=== PATIENT | male | born 1965 | race Caucasian/White ===

== ENCOUNTER 2023-03-22 17:14 | Emergency (ER) | payer OTHER, SELFPAY ==
[2023-03-22 18:39] VITALS: BP 117/65; PULSE 71; RESP 18; TEMP 36.8; O2SAT 100; BMI 25.0
--- NOTE | 2023-03-22 19:56 | ED.EXTPRO ---
HPI - Extremity Problem General Chief complaint: Extremity Injury, Upper Stated complaint: right pinky finger inj Time Seen by Provider: 03/22/23 19:34 Source: patient and family Mode of arrival: ambulatory Limitations: no limitations History of Present Illness HPI Narrative: 57 yo male ambidextrous here with complaints of right hand 5th finger pain/swelling. Was on an approximately 3 foot ladder when he slipped catching his finger on a railing causing it to bend backwards. Now pain and swelling. No numbness, tingling, weakness. MD Complaint: extremity pain and extremity swelling Related Data Allergies Allergy/AdvReac Type Severity Reaction Status Date / Time No Known Allergies Allergy Verified 03/22/23 18:38 [No Known Allergies*] Review of Systems Review of Systems: Yes all other systems are reviewed and are negative Constitutional: Constitutional: Reports no additional constitutional complaints, Denies body ache(s), Denies chills, Denies fever(s), Denies headache(s) and Denies weakness Eyes: Eyes: Reports no additional eye complaints and Denies change in vision ENT: Reports system reviewed and no additional complaints, except as documented, Denies dizziness, Denies headache(s), Denies nasal congestion, Denies nasal discharge and Denies neck pain Cardiovascular: Cardiovascular: Reports no additional cardiovascular complaints, Denies chest pain, Denies leg edema and Denies dyspnea Respiratory: Respiratory: Reports no additional respiratory complaints, Denies cough and Denies dyspnea Gastrointestinal: Gastrointestinal: Reports no additional gastrointestinal complaints, Denies abdominal pain, Denies diarrhea, Denies nausea and Denies vomiting Genitourinary: Genitourinary: Denies urinary incontinence Musculoskeletal: Musculoskeletal: Reports no additional musculoskeletal complaints, Denies back pain, Reports arthralgias, Reports joint swelling, Reports limited range of motion, Denies neck pain, Denies numbness and Denies tingling Integumentary/Breasts: Skin/Breast: Reports system reviewed and no additional complaints, except as docu and Denies rash Neurologic: Reports system reviewed and no additional complaints, except as documented, Denies Abnormal speech present, Denies dizziness, Denies headache(s), Denies numbness, Denies tingling and Denies weakness PMFSH Past Medical History Attestation statement: The following information was validated with the patient. Source: old records reviewed and nursing notes reviewed Onset Date is defined in the Problem List Problems that require an onset date and time if occurred within 24 hrs of arrival to the ED Aortic Dissection and Rupture; Neurologic impairment; Cardiopulmonary Arrest; Endotracheal Intubation; Insertion or Replacement of Mechanical Circulatory Assist Device Social History Social History Advance Directives: No Advance Directives Information Provided: No Physical Exam Vital Signs: Vital Signs: Last Vital Signs Temp 98.3 F 03/22/23 18:39 Pulse 71 03/22/23 18:39 Resp 18 03/22/23 18:39 BP 117/65 03/22/23 18:39 Pulse Ox 100 03/22/23 18:39 O2 Del Method Room Air 03/22/23 18:39 BMI result Body Mass Index 25.0 Const: General: cooperative, healthy appearing, comfortable and no acute distress Orientation/consciousness: patient oriented x3 Limitations: no limitations HEENT: Head: Yes normal to inspection Ears: hearing grossly normal bilaterally General nose exam: Normal external nose present Face and sinus: Yes normal facial exam Mouth: Normal oral and palatal mucosa present Throat: Yes posterior oropharynx normal Eyes: General: appearance normal, both eyes and all related structures Pupils: Equal, round and reactive pupils present Neck: Neck: Yes normal visual inspection Chest: Chest palpation & inspection: normal inspection of the chest Resp: Effort & Inspection: normal respiratory effort Auscultation: clear to auscultation bilaterally Cardio: Rate: regular rate Rhythm: regular rhythm Peripheral pulses: Peripheral pulses 2+ throughout GI: Inspection: Yes normal to inspection Palpation (GI): Soft to palpation and nontender Auscultation: normal bowel sounds Back/Spine/Pelvis: Thoracic/Lumbar Spine: thoracic and lumbar spine normal to inspection Skin: General skin exam: no rashes or lesions noted Neuro: General: patient oriented x3, no focal motor deficits and normal sensation to monofilament Cranial nerves: Yes Equal, round and reactive pupils present Cognition (Neuro): normal cognition Speech: No Abnormal speech present Gait exam (Neuro): Normal gait present Motor exam (neuro): 5/5 motor strength present throughout Extrem: Other: To the right hand 5th finger there is swelling, ecchymosis and TTP with pain with flexion of the digit. Sensation normal. NO pain on palpation over the hand or wrist. Medical Decision Making Medical Decision Making MDM Narrative: 57 yo male xuanxtrous here with complaints of right hand 5th finger pain/swelling. Was on an approximately 3 foot ladder when he slipped catching his finger on a railing causing it to bend backwards. Now pain and swelling. No numbness, tingling, weakness. To the right hand 5th finger there is swelling, ecchymosis and TTP with pain with flexion of the digit. Sensation normal. NO pain on palpation over the hand or wrist. Will check x-rays Differential Diagnosis Differential Diagnoses: The differential diagnosis associated with the presentation includes fracture, dislocation, sprain, strain low concern for tendon injury, vascular injury Admission/Observation Consideration of admission/observation: Escalation of care including admission/observation considered low concern for tendon injury, vascular injury requiring advanced imaging or urgent ortho consultation Consult Healthcare Provider Management of the patient was discussed with: Dry Kiln Operator Spoke to orthopedics -Kemi GODOY, recommended finger splint and rosalind tape Independent Interpretation I performed an independent interpretation of an: Plain X-Ray Interpretation: I independently reviewed the x-ray and agree with the rad report Radiology Impression Discussion of test interpretation with radiology: I have reviewed the radiologist's reading. Radiologist Impression: [address] [address] XRay Report Signed Patient: Sabino Salinas MR#: [id number] : 1965 Acct:[id number] Age/Sex: 57 / M ADM Date: 03/22/23 Loc: .ED Attending Dr: Ordering Physician: Rita Roque DO Date of Service: 03/22/23 Procedure(s): XR finger RT min 2V Accession Number(s): [id number] cc: Rita Roque DO; Monroe Mosher MD~ EXAMINATION: XR FINGER, RIGHT CLINICAL INFORMATION: Fall with fifth finger pain COMPARISON: None available. TECHNIQUE: 3 views of the right fifth digit. FINDINGS: There is a comminuted intra-articular slightly impacted fracture involving the base of the middle phalanx of the fifth digit. A large fragment is displaced dorsally. The bones and soft tissues are otherwise unremarkable. No additional fracture. Remainder of the joint spaces are maintained. XR/XR finger RT min 2V IMPRESSION: Comminuted intra-articular fracture involving the base of the middle phalanx of the fifth digit. Independent Historian Clinical information obtained from an independent historian. History obtained from or confirmed by: Spouse Tests considered The following testing was considered but not selected: low concern for tendon injury, vascular injury requiring advanced imaging Prescription Management I considered prescription management with: Pain Medication Discharge Plan Discharge Clinical Impression: Finger fracture, right Patient Disposition: Home, Self-Care Instructions: Finger Fracture (ED) Additional Instructions: Use the finger splint, tape for comfort Apply ice Elevate the extremity Take ibuprofen for pain as needed Call orthopedics for follow-up Referrals: [facility] [place] Orthopedic Surgeons [Provider Group] - 1 week Interventions: ED Discharge Assessment Last Done: 03/22/23 20:27 Discharge Date/Time: 03/22/23 20:27
== END 2023-03-22 20:27 | disposition home or self-care (01) ==
PROVIDERS: Emergency Provider Emergency Medicine; PCP Family Medicine
DX: S62.626A Displaced fracture of middle phalanx of right little finger, initial encounter for closed fracture (principal); W11.XXXA Fall on and from ladder, initial encounter; Y93.9 Activity, unspecified; Y92.9 Unspecified place or not applicable; Y99.9 Unspecified external cause status
CPT/HCPCS: 29130; 73140; 99282; 99283

== ENCOUNTER 2023-03-31 10:06 | Outpatient (REF) | payer OTHER, SELFPAY | END 2023-03-31 10:07 | disposition home or self-care (01) | LOC: HO.HOSX 10:06 | PROVIDERS: Visit Provider Physician Assistant | DX: Z13.89 Encounter for screening for other disorder (principal) ==

== ENCOUNTER 2023-04-07 11:33 | Outpatient (REF) | payer OTHER, SELFPAY ==
--- NOTE | ~2023-04-07 | XR_ITS ---
EXAMINATION: XR HAND, RIGHT CLINICAL INFORMATION: Fifth finger pain COMPARISON: None available. TECHNIQUE: PA, lateral, and oblique views of the right hand. FINDINGS: There is comminuted, displaced fracture base of the fifth middle phalanx with intra-articular extension. Small bony fragment identified at the ulnar aspect of the fifth PIP joint. Diffuse soft tissue swelling of the fifth digit. XR/XR hand RT min 3V IMPRESSION: Fractured fifth finger.
== END 2023-04-07 11:34 | disposition home or self-care (01) ==
LOC: HO.HOSX 11:33
PROVIDERS: Visit Provider Physician Assistant
DX: Z01.818 Encounter for other preprocedural examination (principal); S62.626A Displaced fracture of middle phalanx of right little finger, initial encounter for closed fracture
CPT/HCPCS: 73130

== ENCOUNTER 2023-04-07 12:58 | Outpatient (AMB) | payer OTHER, SELFPAY ==
--- NOTE | 2023-04-07 13:06 | MHC.OFFVIS ---
Intake Vital Signs 04/07/23 13:07 Height 5 ft 8 in Weight 164 lb BMI 24.9 Intake Visit Reasons: FC- ER follow up Rt fifth digit fracture Intake Note: Sabino a 57 year old male who is ambidextrous, presents today for an ER follow up of right 5th digit fracture, DOI 03/22/23. Patient reports while he was on a ladder that is approximately 3 feet, he slipped catching his finger on a railing causing it to bend backwards. He was seen [place] [facility] [place] where xrays were taken and placed in a splint. Currently states his finger is sore, bruised and swollen. At times he is having numbness in his pinky DIP. Allergies No Known Allergies [No Known Allergies*] Allergy (Verified 04/07/23 13:10) Medication List - Last Reconciled 04/07/23 by Elizabeth Ramirez PA-C No Known Home Meds HPI FC- ER follow up Rt fifth digit fracture HPI Details 57-year-old ambidextrous male who presents to the office today for an ER follow-up of right 5th metacarpal injury s/p slipping from a 3 feet ladder and catching his finger on a railing, causing it to ?bend backwards?, 03/22/23. He was seen at ED the same day where x-rays were performed and he was placed in a splint. He currently states he has soreness, bruising and swelling in his small finger. He also c/o occasional numbness at the DIP of his finger. [facility] Medical History (Updated 04/07/23 @ 14:42 by Elizabeth Ramirez PA-C) Hx of dislocation of shoulder Social History (Updated 04/07/23 @ 13:12 by Angie Oconnor [facility]) Current occupational status: employed Current occupation: ambidextrous/ environmental services Review of Systems Const All systems reviewed & are unremarkable except as noted in HPI and below Physical Exam Vital Signs: BMI result Body Mass Index 24.9 Const General: cooperative, healthy appearing, comfortable, no acute distress, well developed and alert Orientation/consciousness: patient oriented x3 HEENT Head: Yes normal to inspection, Yes normocephalic and Yes atraumatic Eyes General: appearance normal, both eyes and all related structures Neck Neck: Yes normal visual inspection and Yes no lymphadenopathy Resp Effort & Inspection: normal respiratory effort and able to speak in complete sentences Cardio Rate: regular rate Peripheral pulses: Peripheral pulses 2+ throughout GI Inspection: Yes normal to inspection Palpation (GI): Soft to palpation Skin General skin exam: no rashes or lesions noted Neuro General: patient oriented x3 Extrem Other: Right small finger: Normal to inspection. He has diffuse swelling throughout the finger. No open wounds or laceration. He has tenderness in the middle phalanx and pain with stress testing. No significant laxity. No scissoring or crossing of digits. NVI. Psych Appearance: grossly normal Mental Status: mental status grossly normal Office Procedures Fracture Care Fracture Billing Code: Fracture Billing Code Results Reviewed Results Reviewed: Xrays were obtained in the office today and personally reviewed by me of the right hand Comminuted intra-articular fracture involving the base of the middle phalanx of the fifth digit Assessment & Plan Assessment & Plan (1) Finger fracture, right: Code(s): S62.609A - Fracture of unspecified phalanx of unspecified finger, initial encounter for closed fracture Qualifiers: Encounter type: initial encounter Finger: little finger Fracture type: closed Phalanx: middle Fracture alignment: displaced Qualified Code(s): S62.626A - Displaced fracture of middle phalanx of right little finger, initial encounter for closed fracture Plan I discussed the case with Dr. Mckeon. I discussed the extent of the injury to the patient and options available. Given the extent of the fracture pattern and high risk of further displacement, it is recommended that we surgically fix this to help with stability and restoring anatomy. I explained to the patient the procedure in detail along with the risks, benefits and alternatives. Risks including but not limited to infection, wound breakdown, stiffness, ongoing pain, nonunion or malunion, and possible complications with hardware. He does understand all this and would like to proceed with closed versus open reduction internal fixation of the right small finger with Dr. Mckeon. He will be booked accordingly. Orders: Orders XR hand RT min 3V Today M79.641 - Pain in right hand Patient Instructions: Scribed for Elizabeth Ramirez PA-C, by Curtis Tapia medical transcription radiology, on 04/07/2023 at 1:00 PM EST. Elizabeth Cardenas PA-C, have personally reviewed and agree with the information entered by the scribe. Coding Level of Care Code New Pt Level 4 (16462) Diagnoses Closed displaced fracture of middle phalanx of right little finger, initial encounter S62.626A Encounter type: initial encounter Finger: little finger Fracture type: closed Phalanx: middle Fracture alignment: displaced CPT Codes Fracture Care - Fracture Billing Code: Fracture Billing Code ([id number])
[2023-04-07 13:07] VITALS: BMI 24.9
== END 2023-04-07 14:39 | disposition home or self-care (01) ==
PROVIDERS: PCP Family Medicine; Visit Provider Physician Assistant
DX: S62.626A Displaced fracture of middle phalanx of right little finger, initial encounter for closed fracture (principal)
CPT/HCPCS: 99204

== ENCOUNTER 2023-04-09 11:16 | Day surgery (SDC) | payer OTHER, SELFPAY ==
--- NOTE | 2023-04-08 12:23 | P.CONAN_ITS ---
Documented by User: Estelle Rolle NP 04/08/23 12:23 HPI - Anesthesia Eval Consult details Narrative: 57yo M for Right Small Finger Fx ORIF vs CRPP No other PHMx or home rx listed by surgeon [facility] Past Medical History Medical History Diverticulitis Hx of dislocation of shoulder Surgical History Surgical History History of arthroplasty of right shoulder Social History Social History Patient Tobacco Use Status: Never used Tobacco Use of substances other than those prescribed or required for medical reasons: Yes Substance Use Frequency: Daily Are you DNR?: No Advance Directives: No Advance Directives Information Provided: Yes Current occupational status: employed Current occupation: ambidextrous/ environmental services Meds Allergies Allergy/AdvReac Type Severity Reaction Status Date / Time No Known Allergies Allergy Verified 04/09/23 12:01 [No Known Allergies*] Assessment and Plan Assessment Anesthesia Assessment: Chart Reviewed Documented by User: Tricia Harrison MD 04/09/23 14:43 [facility] Past Medical History Medical History Diverticulitis Hx of dislocation of shoulder Family History Family history of problems with anesthesia: No Surgical History Surgical History History of arthroplasty of right shoulder History of Problems with Anesthesia: No Social History Social History Patient Tobacco Use Status: Never used Tobacco Use of substances other than those prescribed or required for medical reasons: Yes Substance Use Frequency: Daily Are you DNR?: No Advance Directives: No Advance Directives Information Provided: Yes Current occupational status: employed Current occupation: ambidextrous/ environmental services Meds Allergies Allergy/AdvReac Type Severity Reaction Status Date / Time No Known Allergies Allergy Verified 04/09/23 12:01 [No Known Allergies*] Exam Airway TM Dist: >3cm Neck ROM: Full Heart: rrr Lungs: cta Assessment and Plan Assessment Anesthesia Assessment: Anesthesia Plan Discussed Final Anesthetic Review Family History of Problems with Anesthesia: No History of Problems with Anesthesia: No NPO: Yes ASA Class: II Final Preanesthetic Review: No Changes in Pt Med Stat, Meds/Allgs Chart Reviewed, Consent Obtained/Reviewed and Anes Risks/Benef Reviewed Patient Risk: Low Procedure Risk: Low Anesthetic Plan Anesthetic Plan: GA Disposition: Standard PACU
[2023-04-09] VITALS (9 sets, daily range): BP systolic 99–113; BP diastolic 60–79; PULSE 57–68; RESP 12–16; TEMP 36.1–36.2; O2SAT 96–99; BMI 25.2
--- NOTE | ~2023-04-09 | FL_ITS ---
EXAMINATION: XR FLUOROSCOPY WITH IMAGES CLINICAL INFORMATION: ORIF right fifth finger fracture. COMPARISON: Radiographs dated 04/07/2023 and 03/22/2023. TECHNIQUE: Fluoroscopy Supervised By: Dr. Jitendra Mckeon. Fluoroscopy Time: 43.71 seconds. Cumulative Dose: 0.6554 mGy. DAP: 0.0396 Gycm2. Images: 4. FINDINGS: The submitted images show coaxial placement of a K wire coaxially transfixing the right fifth distal and proximal interphalangeal joints. The comminuted of fracture of the base of the fifth middle phalanx is redemonstrated. FL/FL guidance in OR IMPRESSION: Intraoperative fluoroscopic guidance is provided during ORIF of a comminuted fracture of the base of the right fifth middle phalanx. Please see the patient's Operative Report for full procedural details.
[2023-04-09] MEDS: Lactated Ringers 1,000 ML 100 ML IVCONT (12:02)
--- NOTE | 2023-04-09 14:50 | MHC.SHP ---
Pre-Procedural Eval Section A Date of Service: 04/09/23 The patient is an INPATIENT: No Changes since office visit: No Cold of Flu in the past 2 weeks, No New Medical Problems, No Changes in Medication and No Patient answered all questions The History & Physical has been completed within 30 days and I have reviewed it.: Yes Section B Chief Complaint: Displaced fracture of middle phalanx of right concepción Allergies: Allergies Allergy/AdvReac Type Severity Reaction Status Date / Time No Known Allergies Allergy Verified 04/09/23 12:01 [No Known Allergies*] Plan I have reviewed the history and physical and performed a pertinent physical examination on my patient. No changes have occurred unless specified. Time Spent With Patient Time: Total time managing care of this patient today ____ minutes.
--- NOTE | 2023-04-09 15:59 | PM.OP ---
Brief Operative Note Date of Service: 04/09/23 Pre-op diagnosis: Right SF MP fx Post-op diagnosis: same Procedure: CRPP right sf MP Implants: 0.45 k wire x1 Surgeon: Jitendra Mckeon MD Anesthesia: GETA and local Was an Edger Machine Operator used for this Procedure?: Yes Edger Machine Operator: Kemi Rai Estimated blood loss (mL): 15 IV fluids (mL): 500 Pathology: none sent Condition: stable Disposition: PACU
[2023-04-09] MEDS: oxyCODONE HCl Immed Release 5 MG TABLET PO (17:40)
--- NOTE | 2023-04-10 11:52 | P.OP_ITS ---
Operative Note Operative Note Date of Service: 04/09/23 Narrative: Date of Service: 04/09/23 Pre-op diagnosis: Right SF MP fx Post-op diagnosis: same Procedure: CRPP right sf MP Implants: 0.45 k wire x1 Surgeon: Jitendra Mckeon MD Anesthesia: GETA and local Was an Radiopharmacist used for this Procedure?: Yes Radiopharmacist: Kemi Rai Estimated blood loss (mL): 15 IV fluids (mL): 500 Pathology: none sent Condition: stable Disposition: PACU Patient was brought to the operating room and placed supine on the surgical table. He was prepped and draped in standard sterile fashion and a time out was called to identify proper site, proper procedure and IV antibiotics per weight were administered. I began by using biplanar flouro to visualize the fracture. This was a impacted and comminuted middle phalanx fracture. It was minimally mobile. I used a sharp tenaculum through the distal phalanx to mobilize the fracture and a 0.45 k-wire was used to greatly improve the alignment and reduce the volarly subluxed middle phalanx. This was successful and confirmed with biplanar flouro. Once I was satisfied with the pin position and the reduction the in was bent and cut and padded and an ulnar gutter splint was applied. 8 ml of 0.5 marcaine without epi was used for a digital block. Patient was then extubated and brought to the recovery room in stable condition. There were no known complications.
== END 2023-04-09 17:42 | disposition home or self-care (01) ==
LOC: HO.SSS 11:17
PROVIDERS: PCP Family Medicine; Visit Provider Orthopaedic Surgery
PROC: (CPT 26727; principal; 2023-04-09 13:50)
DX: S62.626A Displaced fracture of middle phalanx of right little finger, initial encounter for closed fracture (principal); R20.0 Anesthesia of skin; W11.XXXA Fall on and from ladder, initial encounter; Y93.9 Activity, unspecified; Y92.9 Unspecified place or not applicable; Y99.9 Unspecified external cause status
CPT/HCPCS: 26727; J0690; J1100; J1170; J2250; J2405; J2704; J2795

== ENCOUNTER → 2023-04-09 11:16 | Outpatient (BNV) | payer OTHER, SELFPAY | PROVIDERS: PCP Family Medicine; Visit Provider Orthopaedic Surgery | DX: S62.626A Displaced fracture of middle phalanx of right little finger, initial encounter for closed fracture (principal) | CPT/HCPCS: 26727 ==

== ENCOUNTER 2023-04-14 12:55 | Outpatient (REF) | payer OTHER, SELFPAY ==
--- NOTE | ~2023-04-14 | XR_ITS ---
EXAMINATION: XR HAND, RIGHT CLINICAL INFORMATION: Pain. COMPARISON: Radiograph right hand 04/07/2023. TECHNIQUE: PA, lateral, and oblique views of the right hand. FINDINGS: Stable appearance of comminuted fracture at the base of the middle phalanx of the fifth digit with intra-articular extension, similar impaction and unchanged mild ventral displacement of the distal fragment. No interval injuries. Surrounding soft tissue swelling is unchanged. XR/XR hand RT min 3V IMPRESSION: Stable fracture of the middle phalanx of the fifth digit.
== END 2023-04-14 12:56 | disposition home or self-care (01) ==
LOC: HO.HOSX 12:55
PROVIDERS: PCP Family Medicine; Visit Provider Physician Assistant
DX: S62.626D Displaced fracture of middle phalanx of right little finger, subsequent encounter for fracture with routine healing (principal)
CPT/HCPCS: 73130

== ENCOUNTER 2023-04-14 12:55 | Outpatient (AMB) | payer OTHER, SELFPAY ==
--- NOTE | 2023-04-14 13:01 | A.OFFVIS_ITS ---
Intake Intake Visit Reasons: PO-Rt SF ORIF 04/09/23 NE Intake Note: Sabino is a 57 year old male who presents for a post operative appointment of his Right SF ORIF 04/09/2023. Patient reports that he has no pain but the the 5th digit feels numb and wasn't sure if this was normal. Allergies No Known Allergies [No Known Allergies*] Allergy (Verified 04/14/23 13:08) HPI PO-Rt SF ORIF 04/09/23 NE HPI Details 57-year-old male who presents in the off ice today 4 days status post right small finger CRPP, which was performed on 04/09/[address] Mckeon. The patient reports he has no pain but the 5th digit feels numb. He is not sure if that is normal. The patient expresses concern about his deductible being $4,000. He states he is unable to pay for a second surgery but expresses that he wants to give this finger the best possible chance of to healing properly. Patient is accompanied in the office today by his partner. [facility] Medical History Diverticulitis Hx of dislocation of shoulder Surgical History History of arthroplasty of right shoulder Social History Patient Tobacco Use Status: Never used Tobacco Current occupational status: employed Current occupation: ambidextrous/ environmental services Review of Systems Const All systems reviewed & are unremarkable except as noted in HPI and below Physical Exam Const General: cooperative, healthy appearing and no acute distress Resp Effort & Inspection: normal respiratory effort and able to speak in complete sentences Cardio Rate: regular rate Peripheral pulses: Peripheral pulses 2+ throughout GI Palpation (GI): Soft to palpation Skin Lesions: no lesions Rashes: no rashes Extrem Other: Right small finger: Pin is no longer present. No surrounding erythema or drainage. No signs of infection. Reports numbness and tingling along the ulnar and radial digital nerve distribution. Capillary refill is brisk. Assessment & Plan Assessment & Plan (1) Finger fracture, right: Comment: Right small finger CRPP 04/09/2023 Dr. Jitendra Mckeon Code(s): S62.609A - Fracture of unspecified phalanx of unspecified finger, initial encounter for closed fracture Qualifiers: Encounter type: initial encounter Finger: little finger Fracture alignment: displaced Fracture type: closed Phalanx: middle Qualified Code(s): S62.626A - Displaced fracture of middle phalanx of right little finger, initial encounter for closed fracture Plan Mr. Salinas is a 57-year-old male who presents in the office today 4 days status post right small finger CRPP, which was performed on 04/09/[address] Mckeon. The patient reports he has no pain but the 5th digit feels numb. He is not sure if that is normal. The patient expresses concern about his deductible being $4,000. He states he is unable to pay for a second surgery but expresses that he wants to give this finger the best possible chance of to healing properly. Patient is accompanied in the office today by his partner. During splint removal by the MA while in the office, the pin was attached to the splinting material and was pulled out of placement. Dr. Mckeon was available to see the patient with me while in the office today and collaborative treatment plan was made. We discussed what to expect with sensation in the right small finger. We addressed the pin being displaced while the splint was removed and discussed surgical and non-surgical treatments for further treatment of the right small finger. The finger was placed in a metal finger splint, while in the office today to hold the finger in extension. The area was cleaned and a light dressing was applied over the pin site. The plan is to bring the patient to the Operating Room 04/17/23 for repeat CRPP of the right little finger. Dr. Mckeon discussed the case and explained the extent of the injury to the patient and options available which include surgical intervention. Dr. Mckeon explained the procedure in detail along with the length of recovery and rehab course. Dr. Mckeon explained the risk, benefits and alternatives. Risk including, but not limited to infection, blood clots, bleeding, non union or malunion and nerve/tissue damage to surrounding areas. I answered all their questions and with their understanding they have consented to move forward with Operative Fixation of the right little finger. X-rays of the right hand which were obtained while in the office today and were reviewed by me, Kemi Fredi PA-C, redemonstration of a displaced fracture at the base of the 5th middle phalanx with intra-articular extension. Orders: Orders XR hand RT min 3V 04/14/23 M79.643 - Pain in unspecified hand Patient Instructions: Scribed for Kemi Rai PA-C by Shahrzad Cristina medical office technology instructor, on 03/21/2023 at 1:01 pm, EST. Coding Level of Care Code Global (66906) Diagnoses Closed displaced fracture of middle phalanx of right little finger, initial encounter S62.626A Encounter type: initial encounter Finger: little finger Fracture alignment: displaced Fracture type: closed Phalanx: middle
== END 2023-04-14 15:36 | disposition home or self-care (01) ==
PROVIDERS: PCP Family Medicine; Visit Provider Physician Assistant
DX: S62.626A Displaced fracture of middle phalanx of right little finger, initial encounter for closed fracture (principal)
CPT/HCPCS: 99024

== ENCOUNTER 2023-04-16 14:29 | Day surgery (SDC) | payer OTHER, SELFPAY ==
--- NOTE | 2023-04-15 09:38 | P.CONAN_ITS ---
Documented by User: Estelle Rolle NP 04/15/23 09:38 HPI - Anesthesia Eval Consult details Narrative: 58yo M for Right 5th Digit ORIF verse CRPP [facility] Past Medical History Medical History Diverticulitis Hx of dislocation of shoulder Family History Family history of problems with anesthesia: No Surgical History Surgical History History of arthroplasty of right shoulder History of Problems with Anesthesia: No Social History Social History Patient Tobacco Use Status: Never used Tobacco Use of substances other than those prescribed or required for medical reasons: No Are you DNR?: No Advance Directives: No Advance Directives Information Provided: Yes Current occupational status: employed Current occupation: ambidextrous/ environmental services Meds Allergies Allergy/AdvReac Type Severity Reaction Status Date / Time No Known Allergies Allergy Verified 04/16/23 14:42 [No Known Allergies*] Assessment and Plan Assessment Anesthesia Assessment: Chart Reviewed Final Anesthetic Review Family History of Problems with Anesthesia: No History of Problems with Anesthesia: No Documented by User: Precious De Leon MD 04/16/23 15:56 [facility] Past Medical History Medical History Diverticulitis Hx of dislocation of shoulder Surgical History Surgical History History of arthroplasty of right shoulder Social History Social History Patient Tobacco Use Status: Never used Tobacco Use of substances other than those prescribed or required for medical reasons: No Are you DNR?: No Advance Directives: No Advance Directives Information Provided: Yes Current occupational status: employed Current occupation: ambidextrous/ environmental services Meds Allergies Allergy/AdvReac Type Severity Reaction Status Date / Time No Known Allergies Allergy Verified 04/16/23 14:42 [No Known Allergies*] Exam Airway Mallampati Class: III TM Dist: >3cm Neck ROM: Full Loose/Missing/Broken Teeth: No Heart: RRR Lungs: CTA Assessment and Plan Assessment Anesthesia Assessment: Anesthesia Plan Discussed and Chart Reviewed Final Anesthetic Review NPO: Yes ASA Class: II Final Preanesthetic Review: Meds/Allgs Chart Reviewed, Consent Obtained/Reviewed and Anes Risks/Benef Reviewed Patient Risk: Low Procedure Risk: Low Anesthetic Plan Anesthetic Plan: GA Disposition: Standard PACU
--- NOTE | ~2023-04-16 | FL_ITS ---
INDICATION: Intraoperative fluoroscopy. FLUOROSCOPY: Fluoroscopy Time: 17.4 seconds Dose/air kerma: 0.2881 mGy Images saved: 3 FINDINGS: Multiple intraoperative fluoroscopic images are submitted during reported surgical procedure of the right fifth digit. Correlation with operative report. Evaluation is limited secondary to fluoroscopic technique. IMPRESSION: Intra-operative fluoroscopic imaging provided by radiology during reported surgical procedure of the right fifth digit. Please refer to operative note for further information.
[2023-04-16 14:40] VITALS: BMI 24.9
[2023-04-16 15:00] VITALS: BP 107/77; PULSE 64; RESP 16; TEMP 36.4; O2SAT 98
[2023-04-16] MEDS: Lactated Ringers 1,000 ML 100 ML IVCONT (15:02)
--- NOTE | 2023-04-16 16:01 | MHC.SHP ---
Pre-Procedural Eval Section A - 24 Hr Update-Section A only Date of Service: 04/16/23 The patient is an INPATIENT: No Changes since office visit: No Cold of Flu in the past 2 weeks, No New Medical Problems, No Changes in Medication and No Patient answered all questions The patient has been examined within 24 hours of the surgical procedure. The History & Physical has been completed within 30 days and I have reviewed it.: Yes Section B - Complete if H&P > 30 days Chief Complaint: Displaced fracture of middle phalanx of right concepción Allergies: Allergies Allergy/AdvReac Type Severity Reaction Status Date / Time No Known Allergies Allergy Verified 04/16/23 14:42 [No Known Allergies*] Plan I have reviewed the history and physical and performed a pertinent physical examination on my patient. No changes have occurred unless specified. Time Spent With Patient Time: Total time managing care of this patient today ____ minutes.
--- NOTE | 2023-04-16 17:39 | PM.OP ---
Brief Operative Note Date of Service: 04/16/23 Pre-op diagnosis: fx dislocation right sf Post-op diagnosis: same Procedure: CRPP right DF PIP Implants: 0.54 k wire Surgeon: Jitendra Mckeon MD Anesthesia: GLMA Was an Stripper Preliminary used for this Procedure?: Yes Stripper Preliminary: Kemi Rai Estimated blood loss (mL): 10 IV fluids (mL): 500 Pathology: none sent Condition: stable Disposition: PACU
[2023-04-16 18:09] VITALS: BP 119/72; PULSE 56; RESP 15; TEMP 36.4; O2SAT 100
[2023-04-16 18:14] VITALS: BP 125/81; PULSE 57; RESP 20; O2SAT 99
[2023-04-16] MEDS: oxyCODONE HCl Immed Release 5 MG TABLET PO (18:14)
[2023-04-16 18:19] VITALS: BP 129/76; PULSE 59; RESP 20; O2SAT 99
[2023-04-16 18:23] VITALS: BP 132/87; PULSE 60; RESP 20; O2SAT 99
[2023-04-16 18:38] VITALS: BP 129/83; PULSE 68; RESP 20; TEMP 36.3; O2SAT 100
--- NOTE | 2023-04-21 10:31 | W.PM.OPN ---
Operative Note Operative Note Date of Service: 04/16/23 Narrative: Date of Service: 04/16/23 Pre-op diagnosis: fx dislocation right sf Post-op diagnosis: same Procedure: CRPP right DF PIP Implants: 0.54 k wire Surgeon: Jitendra Mckeon MD Anesthesia: GLMA Was an Liquor Gallery Operator used for this Procedure?: Yes Liquor Gallery Operator: Kemi Rai Estimated blood loss (mL): 10 IV fluids (mL): 500 Pathology: none sent Condition: stable Disposition: PACU Patient was brought to the operating room and placed supine on the surgical table. He was prepped and draped in standard sterile fashion and a time out was called to identify proper site, proper procedure and IV antibiotics per weight were administered. I began by using biplanar flouro to visualize the fracture. The fracture was subluxed volarly as the prior pin was dislodged. The fracture was minimally mobile. I used a sharp tenaculum through the distal phalanx ( From A-P) to distract the joint and a 0.54 k-wire was inserted distal to proximal through the PIP. The alignment was improved and the volar subluxation of the middle phalanx also improved. I confirmed with biplanar flouro. Once I was satisfied with the pin position and the reduction the in was bent and cut and padded and an ulnar gutter splint was applied. Patient was then awakened from anesthesia and brought to the recovery room in stable condition. There were no known complications.
== END 2023-04-16 18:46 | disposition home or self-care (01) ==
LOC: HO.SSS 14:30
PROVIDERS: PCP Family Medicine; Visit Provider Orthopaedic Surgery
PROC: (CPT 26727; principal; 2023-04-16 16:30)
DX: S62.626A Displaced fracture of middle phalanx of right little finger, initial encounter for closed fracture (principal); X58.XXXA Exposure to other specified factors, initial encounter; Y93.9 Activity, unspecified; Y92.9 Unspecified place or not applicable; Y99.8 Other external cause status; Z98.890 Other specified postprocedural states
CPT/HCPCS: 26727; J0690; J1100; J1885; J2250; J2371; J2405; J2704; J3010

== ENCOUNTER → 2023-04-16 14:29 | Outpatient (BNV) | payer OTHER, SELFPAY | PROVIDERS: PCP Family Medicine; Visit Provider Orthopaedic Surgery | DX: S62.626A Displaced fracture of middle phalanx of right little finger, initial encounter for closed fracture (principal) | CPT/HCPCS: 26727 ==

== ENCOUNTER 2023-04-17 09:12 | Outpatient (AMB) | payer OTHER, SELFPAY ==
--- NOTE | 2023-04-17 09:23 | MHC.OFFVIS ---
Intake Intake Visit Reasons: PO-Rt SF ORIF 04/09/23 NE Intake Note: Sabino 57 year old male presents for a post operative appointment of his Right SF ORIF 04/16/[address] Mckeon. States his dressing is too tight over all states he is doing well. Allergies No Known Allergies [No Known Allergies*] Allergy (Verified 04/17/23 09:25) HPI PO-Rt SF ORIF 04/09/23 NE HPI Details 58-year-old male who presents in the office today for a cast change; 1 days status post right small finger CRPP, which was performed on 04/16/[address] Mckeon. The patient reports the dressing was too tight and his fingers were numb all night. Overall he states he is doing well. [facility] Medical History Diverticulitis Hx of dislocation of shoulder Surgical History History of arthroplasty of right shoulder Social History Patient Tobacco Use Status: Never used Tobacco Current occupational status: employed Current occupation: ambidextrous/ environmental services Review of Systems Const All systems reviewed & are unremarkable except as noted in HPI and below Physical Exam Const General: cooperative, healthy appearing and no acute distress Resp Effort & Inspection: normal respiratory effort and able to speak in complete sentences Cardio Rate: regular rate Peripheral pulses: Peripheral pulses 2+ throughout GI Palpation (GI): Soft to palpation Skin Lesions: no lesions Rashes: no rashes Extrem Other: Right small finger: Pin site is clean, dry, and intact. Pin is intact. No signs of infection. NVI. Office Procedures Casting/Splints Other Splint (ulnar gutter splint) Procedure code (CPT) selection complete Assessment & Plan Assessment & Plan (1) Finger fracture, right: Comment: Right small finger CRPP 04/09/2023 Dr. Jitendra Mckeon Code(s): S62.609A - Fracture of unspecified phalanx of unspecified finger, initial encounter for closed fracture Qualifiers: Encounter type: initial encounter Finger: little finger Fracture alignment: displaced Fracture type: closed Phalanx: middle Qualified Code(s): S62.626A - Displaced fracture of middle phalanx of right little finger, initial encounter for closed fracture Plan Mr. Salinas is a 58-year-old male who presents in the office today for a cast change; 1 days status post right small finger CRPP, which was performed on 04/16/[address] Mckeon. The patient reports the dressing was too tight and his fingers were numb all night. Overall he states he is doing well. Dr. Mckeon was available to see the patient with me while in the office today and a collaborative treatment plan was made. The patient was placed in a custom molded ulnar gutter splint, while in the office today. Out of abundance of caution the patient has been prescribed Bactrim. Dr. Mckeon would like for him to complete the course of the medication. Follow up will be in 7 days at his regularly scheduled post op appointment, or sooner if needed. Patient Instructions: Scribed for Kemi Rai PA-C by Shahrzad Cristina medical attendant, on 04/17/2023 at 9:33 am, EST. Coding Level of Care Code Global (42793) Diagnoses Closed displaced fracture of middle phalanx of right little finger, initial encounter S62.626A Encounter type: initial encounter Finger: little finger Fracture alignment: displaced Fracture type: closed Phalanx: middle
== END 2023-04-17 09:52 | disposition home or self-care (01) ==
PROVIDERS: PCP Family Medicine; Visit Provider Physician Assistant
DX: S62.626A Displaced fracture of middle phalanx of right little finger, initial encounter for closed fracture (principal)
CPT/HCPCS: 99024

== ENCOUNTER → 2023-04-17 09:12 | Outpatient (BNVA) | payer OTHER, SELFPAY | PROVIDERS: PCP Family Medicine; Visit Provider Physician Assistant ==

== ENCOUNTER 2023-04-20 23:35 | Inpatient (IN) | payer OTHER, SELFPAY ==
--- NOTE | ~2023-04-20 | CT_ITS ---
EXAMINATION: CT ABDOMEN AND PELVIS WITH CONTRAST CLINICAL INFORMATION: Upper abdominal pain, lipase 2500 COMPARISON: 06/30/2017 TECHNIQUE: Multidetector volumetric images were obtained from the superior aspect of the liver through the pubic symphysis following administration 85 mL of Omnipaque 350 intravenous contrast. Sagittal and coronal reformatted images were obtained on the technologist's workstation. Oral contrast: No This CT examination was performed using dose optimization techniques as appropriate, variously including the following: *Automated exposure control *Adjustment of mA and/or kV according to patient size (this includes techniques or standardized protocols for targeted exams where dose is matched to indication/reason for exam; i.e. extremities or head) *Use of iterative reconstruction technique DLP: 443 mGy-cm FINDINGS: LUNG BASES: The visualized lung bases are unremarkable. LIVER, GALLBLADDER, AND BILIARY TREE: The liver is normal in size, shape, and attenuation. A subcentimeter hypodensity in the right hepatic lobe statistically favors a cyst. No biliary ductal dilatation is present. The gallbladder is unremarkable with no evidence of radiopaque gallstones, gallbladder wall thickening, or obvious pericholecystic inflammatory changes. PANCREAS: There is moderate stranding adjacent to the proximal pancreas, suspicious for sequelae of pancreatitis given the clinical history. No regions of necrosis identified. SPLEEN: Unremarkable. ADRENAL GLANDS: Unremarkable. KIDNEYS AND URETERS: Bilateral nephrograms are symmetric. No hydronephrosis or obstructing calculus identified. There is a 3 mm calculus in the upper left kidney. Punctate calculus in the mid to lower right kidney. BLADDER: Unremarkable. GASTROINTESTINAL TRACT: No evidence of bowel obstruction. Colonic diverticulosis is noted. There is limited evaluation for wall thickening in some segments of the colon due to luminal collapse. The appendix is unremarkable. No free air is seen. ABDOMINAL WALL: No significant hernia is appreciated. LYMPH NODES: Scattered mesenteric and retroperitoneal subcentimeter lymph nodes are present, without significant enlargement by size criteria. VASCULAR: Mild atherosclerotic calcification. PELVIC VISCERA: Unremarkable. OSSEOUS STRUCTURES: Scattered endplate osteophytes in the spine. Facet arthropathy of the lower lumbar spine. CT/CT abdomen pelvis w IV con IMPRESSION: 1. Moderate stranding adjacent to the proximal pancreas, suspicious for sequelae of pancreatitis given the clinical history. 2. Small bilateral renal calculi without hydronephrosis.
[2023-04-20 23:35] VITALS: BP 130/71; PULSE 91; RESP 18; TEMP 36.1; O2SAT 99; BMI 25.1
[2023-04-20 23:50] LABS: MANUAL DIFF FLAG NO
[2023-04-20 23:52] LABS: Basophils Percent Auto 0.3 % (0-2); Eosinophils Absolute Auto 0.2 X10*3/uL (0.0-0.4); Hematocrit 46.1 % (42.0-52.0); Hemoglobin 15.6 g/dl (14.0-18.0); Imm Gran Abs Auto 0.02 X10*3/uL (0.00-0.03); Imm Gran Pct Auto 0.2 % (0.0-0.4); Lymphocytes Absolute Auto 4.8 X10*3/uL (1.2-4.9); Lymphocytes Percent Auto 41.9 % (20-40); Mean Corpuscular HGB Conc 33.8 g/dl (31.0-36.0); Mean Corpuscular Hemoglobin 29.6 pg (27.0-33.0); Mean Corpuscular Volume 87.5 fL (80.0-98.0); Mean Platelet Volume 9.7 fL (9.4-12.4); Monocytes Absolute Auto 0.8 X10*3/uL (0.1-1.2); Monocytes Percent Auto 7.1 % (2-11); Neutrophils Absolute Auto 5.5 x10*3/uL (2.0-8.3); Neutrophils Percent Auto 48.5 % (45-73); Platelet Count 264 X10*3/uL (160-400); Red Blood Count 5.27 X10*6/uL (4.60-5.80); Red Cell Distribution Width 12.7 % (11.0-16.0); White Blood Count 11.4 X10*3/uL (4.8-10.8)
[2023-04-21 00:08] LABS: Alanine Aminotransferase 33 U/L (0-40); Albumin Level 4.3 g/dL (3.5-5.0); Alkaline Phosphatase 60 U/L (39-117); Anion Gap 13 (12-20); Aspartate Amino Transferase 31 U/L (5-37); Bilirubin Direct < 0.2 mg/dL (0.0-0.5); Bilirubin Total 0.2 mg/dL (0.0-1.0); Blood Urea Nitrogen 12 mg/dL (9-16); Calcium 9.1 mg/dL (8.4-10.2); Carbon Dioxide 28 mmol/L (22-29); Chloride 101 mmol/L (96-108); Creatinine Clr Calc Pharmacy 68.5; Estimated Glomerular Filt Rate > 60; Glucose Random 112 mg/dL (60-115); Potassium 3.9 mmol/L (3.3-5.1); Sodium 138 mmol/L (135-145); Total Protein 7.2 g/dL (6.5-8.0)
[2023-04-21 00:19] LABS: Lipase 2547 U/L (8-78)
--- NOTE | 2023-04-21 01:28 | PC.NURSE ---
Patient had some red wine tonight prior to symptoms starting. Patient states that he drinks every other day.
[2023-04-21 01:29] VITALS: BP 114/61; PULSE 80; RESP 18; TEMP 36.2; O2SAT 98
[2023-04-21] MEDS: Ondansetron ODT 4 MG TAB.RAPDIS TRANSLINGU (01:30)
[2023-04-21 01:43] LABS: Appearance Urine Clear; Color Urine Yellow; Glucose Urine UA Negative (Negative); Leukocyte Esterase Urine Negative (Negative); Nitrite Urine Negative (Negative); PH 5.5 (5.0-9.0); Specific Gravity - Urine 1.015 (1.005-1.025); Urine Blood Negative (Negative); Urine Ketones Negative (Negative); Urine Protein Negative (Neg-Trace)
[2023-04-21 04:11] LABS: Ethanol < 10 mg/dL; Lactate Dehydrogenase 154 U/L (118-273); Magnesium 2.1 mg/dL (1.6-2.6); Triglycerides 495 mg/dL (<150)
--- NOTE | 2023-04-21 04:16 | ED_ITS ---
HPI - Abdominal Pain General Chief Complaint: Abdominal Pain Stated Complaint: Abd pain Time Seen by Provider: 04/21/23 03:59 Source: patient and family Mode of arrival: ambulatory Limitations: no limitations History of Present Illness HPI narrative: 58 yo male recent R finger fracture s/p pinning and placed on bactrim by orthopedics 04/15/23 he rarely drinks had a half glass of wine and a beer yesterday - started with severe epigastric pain that wraps around the back with n/v. He had pancreatitis 6 years ago and was told it was due to his diet and fat in his blood he was put on some sort of medications afterwards but ate a better diet and is not on that any longer. He has no hx of heavy drinking, not a binge drinker either. MD elicited complaint: abdominal pain Pertinent past history: other (pancreatitis) Onset (ago): hour(s) (1 hour prior to arrival ) Pain Consistency: other (worsening) Location: epigastric Severity: severe Quality: stabbing Radiation: back Migration to: no migration Exacerbating factors: movement Relieving factors: nothing Context: history of similar episodes Associated symptoms: nausea and vomiting Related Data Previous Rx's Medication Instructions Recorded oxycodone-acetaminophen 5 mg-325 1 tab PO Q6H PRN pain 7 days #28 04/15/23 mg tablet (Percocet) tabs sulfamethoxazole 800 1 tab PO BID 14 days #28 tabs 04/16/23 mg-trimethoprim 160 mg tablet (Bactrim DS) Allergies Allergy/AdvReac Type Severity Reaction Status Date / Time No Known Allergies Allergy Verified 04/21/23 04:44 [No Known Allergies*] Review of Systems Review of Systems Constitutional : No Weight loss, No Fever, No Chills ENT/Mouth : No sore throat, No Rhinorrhea Eyes: No Swelling, No Redness Cardiovascular : No Chest Pain, No SOB, NoEdema Respiratory : No Cough, No Sputum, No Wheezing Gastrointestinal : Positive Nausea, Positive Vomiting, no Diarrhea, positive abdominal Pain, No Hematochezia, No Melena Genitourinary : No Dysuria, No Urinary Frequency, No Hematuria, No Urgency Musculoskeletal : No joint pain, No Myalgias, No Joint Swelling Skin : No Skin Lesions, No rash Neuro : No Weakness, No Numbness, No Dizziness, No Headache Psych : No Anxiety/Panic, No Depression Heme/Lymph: No Bruising, No Lymphadenopathy Endocrine : No Polyuria, No Polydipsia All other systems reviewed and are negative. [facility] Past Medical History Attestation statement: The following information was validated with the patient. Source: old records reviewed Medical History (Updated 04/21/23 @ 05:08 by Rita Roque DO) Pancreatitis Diverticulitis Hx of dislocation of shoulder Surgical History History of arthroplasty of right shoulder Social History Social History Patient Tobacco Use Status: Never used Tobacco Advance Directives: No Advance Directives Information Provided: No Current occupational status: employed Current occupation: ambidextrous/ environmental services Physical Exam ED Vital Signs: Vital Signs - 24 hr 04/20/23 23:35 04/21/23 01:29 04/21/23 04:22 Temperature 97 F 97.2 F Pulse Rate 91 80 Respiratory Rate 18 18 18 Blood Pressure 130/71 114/61 Pulse Oximetry 99 98 Oxygen Delivery Method Room Air Room Air 04/21/23 04:42 Temperature 97.7 F Pulse Rate 73 Respiratory Rate 16 Blood Pressure 125/65 Pulse Oximetry 97 Oxygen Delivery Method Room Air BMI result Body Mass Index 25.1 Appearance: Alert. Oriented X3. Moderate acute distress. Eyes: Pupils equal, round and reactive to light. ENT: Pharynx normal. Neck: Normal inspection. Neck supple. CVS: Normal heart rate and rhythm. Pulses normal. Respiratory: No respiratory distress. Breath sounds normal. Abdomen: Soft and moderate epigastric ttp with guarding Skin: Skin warm and dry. Normal skin color. Normal skin turgor. Extremities: No lower extremity edema. No calf ttp Neuro: Oriented X 3. No motor deficit. No sensory deficit. Course Course Course Narrative: ZOSYN IS TO COVER OUTPATIENT HAND ISSUE NOT ANY CONCERN FOR CURRENT SEPSIS OR INFECTION CONCERN BACTRIM CONTRIBUTED TO PANCREATITIS SULFONAMIDES CAN CAUSE PANCREATITIS Medical Decision Making Medical Decision Making MDM Narrative: 58 yo male with PMH of diverticulitis, recent R hand fracture placed on bactrim to prevent infection 04/15/23, had minimal alcohol with negative ETOH level on arrival, hx of elevated triglycerides and pancreatitis in past - now with abdominal pain and n/v at this time suspect pancreatitis. Could be combination of triglycerides though under 500 does not need insulin, ETOH undetectable and really didn't have much and use of bactrim. IVF - LR ordered and IV dilaudid x 2 for pain with some relief. CT scan to assess extent ordered. will order IV zosyn to cover his hand which is prior issue no concern for sepsis Differential Diagnosis Differential Diagnoses: The differential diagnosis associated with the presentation includes gastritis, pancreatitis Admission/Observation Consideration of admission/observation: Escalation of care including admission/observation considered admit for further management Consult Healthcare Provider Management of the patient was discussed with: Hospitalist (will admit) Lab Data [facility] Lab Attestation statement: I reviewed the patient's lab results. 04/20/23 23:47 04/20/23 23:47 Labs: Lab Results 04/20/23 04/21/23 04/21/23 Range/Units 23:47 01:28 04:58 WBC 11.4 H (4.8-10.8) X10*3/uL RBC 5.27 (4.60-5.80) X10*6/uL Hgb 15.6 (14.0-18.0) g/dl Hct 46.1 (42.0-52.0) % MCV 87.5 (80.0-98.0) fL MCH 29.6 (27.0-33.0) pg MCHC 33.8 (31.0-36.0) g/dl RDW 12.7 (11.0-16.0) % Plt Count 264 (160-400) X10*3/uL MPV 9.7 (9.4-12.4) fL Immature Gran % (Auto) 0.2 (0.0-0.4) % Neut % (Auto) 48.5 (45-73) % Lymph % (Auto) 41.9 H (20-40) % [place] % (Auto) 7.1 (2-11) % Eos % (Auto) 2.0 (0-4) % Baso % (Auto) 0.3 (0-2) % Lymph # (Auto) 4.8 (1.2-4.9) X10*3/uL [place] # (Auto) 0.8 (0.1-1.2) X10*3/uL Eos # (Auto) 0.2 (0.0-0.4) X10*3/uL Baso # (Auto) 0.0 (0.0-0.2) X10*3/uL Abs Immat Gran (auto) 0.02 (0.00-0.03) X10*3/uL Absolute Neuts (auto) 5.5 (2.0-8.3) x10*3/uL Absolute Nucleated RBC 0.000 (0.0-0.012) X10*3/uL Nucleated RBC % (auto) 0.0 (0.0-0.2) /100WBC Sodium 138 (135-145) mmol/L Potassium 3.9 (3.3-5.1) mmol/L Chloride 101 (96-108) mmol/L Carbon Dioxide 28 (22-29) mmol/L Anion Gap 13 (12-20) BUN 12 (9-16) mg/dL Creatinine 1.15 (0.5-1.4) mg/dL Estim Creat Clear Calc 68.5 Estimated GFR > 60 Random Glucose 112 (60-115) mg/dL Lactic Acid 2.0 (0.5-2.0) mmol/L Calcium 9.1 (8.4-10.2) mg/dL Magnesium 2.1 (1.6-2.6) mg/dL Total Bilirubin 0.2 (0.0-1.0) mg/dL Direct Bilirubin < 0.2 (0.0-0.5) mg/dL AST 31 (5-37) U/L ALT 33 (0-40) U/L Alkaline Phosphatase 60 (39-117) U/L Lactate Dehydrogenase 154 (118-273) U/L Total Protein 7.2 (6.5-8.0) g/dL Albumin 4.3 (3.5-5.0) g/dL Triglycerides 495 H (<150) mg/dL Lipase 2547 H (8-78) U/L Urine Color Yellow Urine Appearance Clear Urine pH 5.5 (5.0-9.0) Ur Specific [place] 1.015 (1.005-1.025) Urine Protein Negative (Neg-Trace) mg/dL Urine Glucose (UA) Negative (Negative) mg/dL Urine Ketones Negative (Negative) mg/dL Urine Blood Negative (Negative) Urine Nitrite Negative (Negative) Ur Leukocyte Esterase Negative (Negative) Ethyl Alcohol < 10 mg/dL Independent Interpretation I performed an independent interpretation of an: CT Scan Radiology Impression Discussion of test interpretation with radiology: I have reviewed the radiologist's reading. Independent Historian Clinical information obtained from an independent historian. History obtained from or confirmed by: Spouse External Record Review External record reviewed: Office record Medications Administered Generic Name Dose Route Start Last Admin Trade Name Freq PRN Reason Stop Dose Admin Lactated Ringer's 1,000 mls @ 125 mls/hr 04/21/23 04:15 04/21/23 05:11 Lr IVCONT 125 mls/hr .Q8H LORIE Administration Discontinued Medications Generic Name Dose Route Start Last Admin Trade Name Freq PRN Reason Stop Dose Admin Hydromorphone HCl 1 mg 04/21/23 03:52 04/21/23 04:22 Hydromorphone Hcl 1 Mg/Ml Syringe IVPUSH 04/21/23 03:53 1 mg ONCE ONE Administration Protocol Hydromorphone HCl 1 mg 04/21/23 04:32 04/21/23 05:10 Hydromorphone Hcl 1 Mg/Ml Syringe IVPUSH 04/21/23 04:33 1 mg ONCE ONE Administration Protocol Lactated Ringer's 1,000 mls @ 999 mls/hr 04/21/23 04:00 04/21/23 04:28 Lr IV 04/21/23 05:00 999 mls/hr .Q1H1M LORIE Administration Iohexol 85 ml 04/21/23 04:35 04/21/23 04:36 Iohexol 350 Mg/Ml 100 Ml Infus..Btl IV 04/21/23 04:36 85 ml ONCE ONE Administration Ondansetron HCl 4 mg 04/21/23 01:26 04/21/23 01:30 Ondansetron Odt 4 Mg Tab.Rapdis TRANSLINGU 04/21/23 01:27 4 mg ONCE ONE Administration Ondansetron HCl 4 mg 04/21/23 03:52 04/21/23 04:21 Ondansetron Hcl 4 Mg/2 Ml Vial IVPUSH 04/21/23 03:53 4 mg ONCE ONE Administration Critical Care Time Critical Care Time Critical Care Time: Yes Total Critical Care Time: 60 Attestation: IVF, review of records, 2 doses of IV dilaudid with some improvement in pain, admission I attest to this time spent taking care of the patient Discharge Plan Discharge Clinical Impression: Abdominal pain Qualifiers: Abdominal location: epigastric Qualified Code(s): R10.13 - Epigastric pain Pancreatitis Qualifiers: Chronicity: acute Pancreatitis type: unspecified pancreatitis type Acute pancreatitis complication: unspecified Qualified Code(s): K85.90 - Acute pancreatitis without necrosis or infection, unspecified Patient Disposition: Admitted As Inpatient
[2023-04-21] MEDS: ondansetron HCL 4 MG/2 ML VIAL IVPUSH (04:21)
[2023-04-21 04:22] VITALS: RESP 18
[2023-04-21] MEDS: HYDROmorphone HCl 1 MG/ML SYRINGE IVPUSH ×2 (04:22→05:10)
[2023-04-21] MEDS: Lactated Ringers 1,000 ML 999 ML IV (04:28)
[2023-04-21] MEDS: iohexoL 350 MG/ML 100 ML INFUS..BTL 85 ML IV (04:36)
[2023-04-21 04:42] VITALS: BP 125/65; PULSE 73; RESP 16; TEMP 36.5; O2SAT 97
[2023-04-21] MEDS: Lactated Ringers 1,000 ML 125 ML IVCONT ×3 (05:11→23:59)
--- NOTE | 2023-04-21 05:36 | PM.IMHP ---
History of Present Illness Date of Service: 04/21/23 Chief Complaint: Abdominal Pain This is a 58-year-old male with pertinent history of triglyceride induced pancreatitis, diverticulitis who presents to the emergency department for evaluation of abdominal pain. Patient states he had sudden onset of epigastric pain that started prior to presentation. It was constant, progressive and radiated to the back. Patient had associated nausea and vomiting with it. He states that his last episode of pancreatitis was 6 years ago and he was told that it was due to fat in his blood. Patient subsequently followed a fat-free diet. He does admit that over the last 1 week he has not been strictly following his diet and has eaten fast foods. Also had a glass of wine yesterday. He underwent surgery on his right hand on 04/15 and was given p.o. Bactrim as prophylaxis. No fever, chills, chest discomfort, palpitations, shortness of breath, changes in urinary or bowel habits. In the emergency department, lipase found to be elevated and imaging concerning for pancreatitis. Review of Systems Constitutional: Constitutional: Reports no additional constitutional complaints Cardiovascular: Cardiovascular: Reports no additional cardiovascular complaints Respiratory: Respiratory: Reports no additional respiratory complaints Gastrointestinal: Gastrointestinal: Reports abdominal pain, Reports nausea and Reports vomiting Genitourinary: Genitourinary: Reports no additional male genitourinary complaints [facility] Medical History Pancreatitis Diverticulitis Hx of dislocation of shoulder Pertinent family history: No family history of early CAD Surgical History History of arthroplasty of right shoulder Social History Patient Tobacco Use Status: Never used Tobacco Advance Directives: No Advance Directives Information Provided: No Current occupational status: employed Current occupation: ambidextrous/ environmental services Meds Allergies Allergy/AdvReac Type Severity Reaction Status Date / Time No Known Allergies Allergy Verified 04/21/23 04:44 [No Known Allergies*] Active Medications: Current Medications Lactated Ringer's (Lr) 1,000 mls @ 125 mls/hr IVCONT .Q8H LORIE Last Admin: 04/21/23 05:11 Dose: 125 mls/hr Piperacillin Sod/Tazobactam (Sod 3.375 gm/ Sodium Chloride) 50 mls @ 100 mls/hr IV ONCE ONE Stop: 04/21/23 05:53 Physical Exam Vital Signs and Narrative: Vital Signs: Last Vital Signs Temp 97.7 F 04/21/23 04:42 Pulse 73 04/21/23 04:42 Resp 16 04/21/23 04:42 BP 125/65 04/21/23 04:42 Pulse Ox 97 04/21/23 04:42 O2 Del Method Room Air 04/21/23 04:42 BMI result Body Mass Index 25.1 Middle-aged male lying in bed in mild distress Neck supple, no JVD Regular rate and rhythm, S1-S2 heard Regular breath sounds bilaterally, no wheezing or crackles appreciated Abdomen with epigastric tenderness with mild guarding, no rigidity, no rebound tenderness Patient is awake, alert and oriented to self, place, time and person ; no focal motor deficit Extremity: Right hand covered in cast Psych: Normal mood No pedal edema Results Labs 04/20/23 23:47 04/20/23 23:47 Labs: Laboratory Results - last 24 hr 04/20/23 04/21/23 04/21/23 23:47 01:28 04:58 MCV 87.5 MCH 29.6 MCHC 33.8 RDW 12.7 Plt Count 264 MPV 9.7 Immature Gran % (Auto) 0.2 Neut % (Auto) 48.5 Lymph % (Auto) 41.9 H [place] % (Auto) 7.1 Eos % (Auto) 2.0 Baso % (Auto) 0.3 Lymph # (Auto) 4.8 [place] # (Auto) 0.8 Eos # (Auto) 0.2 Baso # (Auto) 0.0 Abs Immat Gran (auto) 0.02 Absolute Neuts (auto) 5.5 Absolute Nucleated RBC 0.000 Nucleated RBC % (auto) 0.0 Anion Gap 13 Estim Creat Clear Calc 68.5 Estimated GFR > 60 Random Glucose 112 Lactic Acid 2.0 Calcium 9.1 Magnesium 2.1 Total Bilirubin 0.2 Direct Bilirubin < 0.2 AST 31 ALT 33 Alkaline Phosphatase 60 Lactate Dehydrogenase 154 Total Protein 7.2 Albumin 4.3 Triglycerides 495 H Lipase 2547 H Urine Color Yellow Urine Appearance Clear Urine pH 5.5 Ur Specific [place] 1.015 Urine Protein Negative Urine Glucose (UA) Negative Urine Ketones Negative Urine Blood Negative Urine Nitrite Negative Ur Leukocyte Esterase Negative Ethyl Alcohol < 10 Imaging Radiologist's Impressions: Impressions Abdomen/Pelvis CT 04/21/23 04:35 IMPRESSION: 1. Moderate stranding adjacent to the proximal pancreas, suspicious for sequelae of pancreatitis given the clinical history. 2. Small bilateral renal calculi without hydronephrosis. Assessment and Plan (1) Pancreatitis: Qualifiers: Acute pancreatitis complication: unspecified Chronicity: acute Pancreatitis type: unspecified pancreatitis type Qualified Code(s): K85.90 - Acute pancreatitis without necrosis or infection, unspecified Status: Acute Plan This is a 58-year-old male with pertinent history of triglyceride induced pancreatitis, diverticulitis who presents to the emergency department for evaluation of abdominal pain. #. Acute pancreatitis: Will stop Bactrim (class 1 drug). Continue IV crystalloid resuscitation and initiating IV opioids p.r.n. for analgesia. NPO for bowel rest. Triglyceride <500 and therefore no indication for IV insulin. #. Recent hand surgery: Switch to doxycycline DVT prophylaxis: Lovenox Full code Admit as inpatient and will require two night minimum hospital stay for management of acute pancreatitis (as above), which is not possible in a lesser acute setting. Quality Stroke Does the patient have a stroke diagnosis?: No VTE Prior VTE?: No VTE Risk Level:: Medical - moderate - high VTE Device Contraindication: Treatment Not Indicated VTE Drug Contraindication: N/A - Med Ordered
[2023-04-21] MEDS: Enoxaparin Sodium 40 MG/0.4 ML SYRINGE SUBCUT (06:17)
[2023-04-21] MEDS: Piperacillin Sodium/Tazobactam 3.375 GM in 0.9 % Sodium Chloride 50 ML IV (06:17)
[2023-04-21] MEDS: Doxycycline Hyclate 100 MG in 0.9 % Sodium Chloride 250 ML 166.67 MG IV ×2 (06:49→17:48)
--- NOTE | 2023-04-21 07:49 | PHA.MEDREC ---
Pharmacy Consult ? Medication Reconciliation Pharmacy has completed the medication reconciliation with the pt, pt said he only took percocet on the first day post surgery but does not take anymore. Pt also stated he was on antibiotic (bactrim) but was told by providers here that he will no longer be taking it. Pt also stated he switched from percocet to tylenol for post-surgery pain and takes as needed.
[2023-04-21] MEDS: 0.9 % Sodium Chloride Flush 3 ML SYRINGE IVFLUSH (08:53)
[2023-04-21 09:40] VITALS: BMI 26.6
[2023-04-21 09:50] VITALS: BP 102/71; PULSE 63; RESP 16; TEMP 36.2; O2SAT 96
--- NOTE | 2023-04-21 10:48 | MHC.CM.PN ---
pt lives with his s/o has no servies has own ride home dc plan home no servies
[2023-04-21 16:00] VITALS: BP 106/68; PULSE 62; RESP 16; TEMP 36.3; O2SAT 96
[2023-04-21 19:56] VITALS: BP 122/74; PULSE 66; RESP 16; TEMP 36.2; O2SAT 96
[2023-04-21] MEDS: Morphine Sulfate 4 MG/ML CARTRIDGE IVPUSH (22:25)
[2023-04-22 04:00] VITALS: BP 101/61; PULSE 67; RESP 16; TEMP 36.1; O2SAT 96
[2023-04-22] MEDS: Doxycycline Hyclate 100 MG in 0.9 % Sodium Chloride 250 ML 166.67 MG IV (06:00)
[2023-04-22] MEDS: Enoxaparin Sodium 40 MG/0.4 ML SYRINGE SUBCUT (06:01)
[2023-04-22 07:16] LABS: MANUAL DIFF FLAG NO
[2023-04-22 07:26] LABS: Basophils Percent Auto 0.5 % (0-2); Eosinophils Absolute Auto 0.2 X10*3/uL (0.0-0.4); Eosinophils Percent Auto 2.9 % (0-4); Hematocrit 44.4 % (42.0-52.0); Hemoglobin 15.2 g/dl (14.0-18.0); Imm Gran Abs Auto 0.02 X10*3/uL (0.00-0.03); Imm Gran Pct Auto 0.3 % (0.0-0.4); Lymphocytes Absolute Auto 2.3 X10*3/uL (1.2-4.9); Lymphocytes Percent Auto 37.6 % (20-40); Mean Corpuscular HGB Conc 34.2 g/dl (31.0-36.0); Mean Corpuscular Volume 87.7 fL (80.0-98.0); Mean Platelet Volume 10.5 fL (9.4-12.4); Monocytes Absolute Auto 0.5 X10*3/uL (0.1-1.2); Neutrophils Absolute Auto 3.2 x10*3/uL (2.0-8.3); Neutrophils Percent Auto 50.7 % (45-73); Platelet Count 218 X10*3/uL (160-400); Red Blood Count 5.06 X10*6/uL (4.60-5.80); White Blood Count 6.2 X10*3/uL (4.8-10.8)
[2023-04-22] MEDS: 0.9 % Sodium Chloride Flush 3 ML SYRINGE IVFLUSH (07:39)
[2023-04-22 07:44] LABS: Anion Gap 12 (12-20); Blood Urea Nitrogen 8 mg/dL (9-16); Carbon Dioxide 27 mmol/L (22-29); Chloride 105 mmol/L (96-108); Creatinine Clr Calc Pharmacy 85.7; Estimated Glomerular Filt Rate > 60; Glucose Random 82 mg/dL (60-115); Lipase 135 U/L (8-78); Sodium 140 mmol/L (135-145)
[2023-04-22 07:59] VITALS: BP 112/73; PULSE 66; RESP 18; TEMP 36.3; O2SAT 97
[2023-04-22] MEDS: Lactated Ringers 1,000 ML 125 ML IVCONT (09:11)
--- NOTE | 2023-04-22 10:35 | HE.PHANOTE ---
RE: Doxycycline IV to PO Meets criteria to change from antimicrobial IV to PO. Spoke with Dr. Enciso, he okay us to change from Doxycycline IV to PO.
--- NOTE | 2023-04-22 10:38 | PM.DS ---
DS: Providers Provider Date of Service: 04/22/23 Date of admission: 04/21/23 05:31 Primary care physician: Monroe Mosher MD DS: Diagnosis Discharge Diagnosis (1) Pancreatitis: Status: Acute DS: Summary Hospital Course Hospital Course: Admission Hpi Chief Complaint: Abdominal Pain This is a 58-year-old male with pertinent history of triglyceride induced pancreatitis, diverticulitis who presents to the emergency department for evaluation of abdominal pain. Patient states he had sudden onset of epigastric pain that started prior to presentation. It was constant, progressive and radiated to the back. Patient had associated nausea and vomiting with it. He states that his last episode of pancreatitis was 6 years ago and he was told that it was due to fat in his blood. Patient subsequently followed a fat-free diet. He does admit that over the last 1 week he has not been strictly following his diet and has eaten fast foods. Also had a glass of wine yesterday. He underwent surgery on his right hand on 04/15 and was given p.o. Bactrim as prophylaxis. No fever, chills, chest discomfort, palpitations, shortness of breath, changes in urinary or bowel habits. In the emergency department, lipase found to be elevated and imaging concerning for pancreatitis. hospital course: Patient presented with abdomianla clark and found to have elevated lipase, CT of abdomen showed acute pancreatitis, but no stone. Triglyceride level was over 400, he claimed minimal to no alcohol use. He was taking Bactrim for recent hand surgery and bactrim could potentially cause pancreaitis. Initial Lipase was 2547 and by the next day has dropped to 135 following hydration and bowel rest and by the next morning he was feeling good, no pain and tolerate diet. Fenofibrate for hypertriglyceridemia and to follow up with his pcp. Bactrim which patient was taken for hand surgery was changed to Doxycycline for the same duration Time Attestation Discharge coordination time: Greater than 30 minutes Quality: Safe Use of Opioids Does Pt have an Active Cancer Diagnosis on the Problem List?: No Quality: Stroke Does the patient have a stroke diagnosis?: No Physical Exam Vital Signs: Vital Signs: Last Vital Signs Temp 97.3 F 04/22/23 07:59 Pulse 66 04/22/23 07:59 Resp 18 04/22/23 07:59 BP 112/73 04/22/23 07:59 Pulse Ox 97 04/22/23 07:59 O2 Del Method Room Air 04/22/23 07:59 BMI result Body Mass Index 26.6 General: AO X 3, no acute distress Resp: CTA bilateral CVS: S1,S2,RRR GI: +BS, NT, no distention Skin: No rash Neuro: motor grossly intact Psych: appropriate affect DS: Data Data Completed and Pending Labs on day of discharge: Laboratory Results - last 24 hr 04/22/23 05:39 WBC 6.2 RBC 5.06 Hgb 15.2 Hct 44.4 MCV 87.7 MCH 30.0 MCHC 34.2 RDW 13.0 Plt Count 218 MPV 10.5 Immature Gran % (Auto) 0.3 Neut % (Auto) 50.7 Lymph % (Auto) 37.6 [place] % (Auto) 8.0 Eos % (Auto) 2.9 Baso % (Auto) 0.5 Lymph # (Auto) 2.3 [place] # (Auto) 0.5 Eos # (Auto) 0.2 Baso # (Auto) 0.0 Abs Immat Gran (auto) 0.02 Absolute Neuts (auto) 3.2 Absolute Nucleated RBC 0.000 Nucleated RBC % (auto) 0.0 Sodium 140 Potassium 4.0 Chloride 105 Carbon Dioxide 27 Anion Gap 12 BUN 8 L Creatinine 0.92 Estim Creat Clear Calc 85.7 Estimated GFR > 60 Random Glucose 82 Calcium 9.0 Lipase 135 H Discharge Plan Discharge Anticipated Discharge Date/Time: 04/22/23 10:39 Patient Disposition: Home, Self-Care Discharge Diagnosis: Acute pancreatitis, hypertriglyceridemia Referrals: Monroe Mosher MD [Primary Care Provider] - 1 Week Discharge Medications: New doxycycline monohydrate 100 mg Capsule 100 mg PO Q12H Qty: 14 0RF fenofibrate 54 mg Tablet 54 mg PO DAILY Qty: 30 0RF Continued acetaminophen 500 mg Tablet 1,000 mg PO Q6H PRN (Reason: Pain) Discharge Orders: Discharge Order (Routine); Ordered 04/22/23 Ordered By: Anibal Enciso Diet: Advance to usual diet Activity on Discharge: As tolerated Stand Alone Forms: Patient Portal Discharge page Care Plan Goals: recovery Pancreatitis Health Concerns: acute pancreatitis high triglyceride level Plan of Treatment: avoid fatty foods, take fenofibrate to reduce high triglyceride, follow up with your doctor davida week, no alcohol or modestly. stop taking Bactrim and instead take Doxycycline Follow up with your Doctor in a week Assessment: see above
--- NOTE | 2023-04-22 11:20 | MHC.CM.PN ---
pt home no services
[2023-04-22] MEDS: Fenofibrate 54 MG TABLET PO (11:43)
== END 2023-04-22 12:15 | disposition home or self-care (01) | DRG 440 ==
LOC: HO.ED 04-21 05:08 → HO.EDOVER 04-21 05:43 → HO.S3 04-21 07:49
PROVIDERS: Admitting Provider Student in an Organized Health Care Education/Training Program; Emergency Provider Emergency Medicine; PCP Family Medicine; Visit Provider Internal Medicine
DX: K85.30 Drug induced acute pancreatitis without necrosis or infection (principal); E78.1 Pure hyperglyceridemia; T36.8X5A Adverse effect of other systemic antibiotics, initial encounter; Z79.899 Other long term (current) drug therapy
CPT/HCPCS: 36415; 74177; 80048; 80076; 80307; 81003; 83605; 83615; 83690; 83735; 84478; 85025; 99285; J1170; J1650; J2270; J2405; J2543; J7120; Q9967

== ENCOUNTER → 2023-04-21 05:31 | Outpatient (BNV) | payer OTHER, SELFPAY | PROVIDERS: Admitting Provider Student in an Organized Health Care Education/Training Program; Emergency Provider Emergency Medicine; PCP Family Medicine; Visit Provider Student in an Organized Health Care Education/Training Program | DX: K85.90 Acute pancreatitis without necrosis or infection, unspecified (principal) | CPT/HCPCS: 99222; 99239 ==

== ENCOUNTER 2023-04-28 09:44 | Outpatient (AMB) | payer OTHER, SELFPAY ==
--- NOTE | 2023-04-28 09:57 | A.OFFVIS_ITS ---
Intake Intake Visit Reasons: PO-Rt SF ORIF vc CRPP 04/16/23 NE Intake Note: Sabino is a 58 year old right hand dominant male who presents today for a post op appointment s/p right SF ORIF vc CRPP 04/16/23 NE. Patient reports that he is doing well with some mild numbness. Allergies No Known Allergies [No Known Allergies*] Allergy (Verified 04/21/23 04:44) HPI PO-Rt SF ORIF vc CRPP 04/16/23 NE HPI Details Sabino is a 58 year old man who presents S/P right repeat small finger ORIF, DOS: 04/16/23. His initial ORIF was done 04/09/23, and his K-wire was removed accidentally at his first post-op appointment on 04/14/23. At his last appointment he was fitted for an ulnar gutter splint & given a course of PO Bactrim. He says he is doing well in regards to pain, and denies any fever, chills, or drainage. He reports having some mild numbness in his finger. 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 Review of Systems Const All systems reviewed & are unremarkable except as noted in HPI and below Physical Exam Const General: no acute distress, alert and awake Orientation/consciousness: patient oriented x3 HEENT Head: Yes normocephalic and Yes atraumatic Eyes EOM: EOMs intact bilaterally Resp Effort & Inspection: normal respiratory effort and able to speak in complete sentences Cardio Jugular venous distension: no JVD Skin General skin exam: turgor normal Rashes: no rashes Neuro General: patient oriented x3 Extrem Other: pin site c/d/i sf wwp Decreased sensation DP Psych Appearance: grossly normal Affect: normal affect Attitude: cooperative Assessment & Plan Assessment & Plan (1) Fracture of phalanx of right hand, closed: Code(s): S62.609A - Fracture of unspecified phalanx of unspecified finger, initial encounter for closed fracture Plan: Pin site c/d/i Cast in ulnar gutter and f/u 2 weeks for xray Plan Prepared for Jitendra Mckeon MD by Mert Bravo, medical laboratory specialist, on 04/28/23 at 10:05 AM, EST. Coding Level of Care Code Global (56448) Diagnoses Fracture of phalanx of right hand, closed S62.609A
== END 2023-04-28 11:00 | disposition home or self-care (01) ==
PROVIDERS: PCP Family Medicine; Visit Provider Orthopaedic Surgery
DX: S62.609A Fracture of unspecified phalanx of unspecified finger, initial encounter for closed fracture (principal)
CPT/HCPCS: 99024

== ENCOUNTER → 2023-04-28 09:44 | Outpatient (BNVA) | payer OTHER, SELFPAY | PROVIDERS: PCP Family Medicine; Visit Provider Orthopaedic Surgery ==

== ENCOUNTER 2023-05-15 09:13 | Outpatient (REF) | payer OTHER, SELFPAY ==
--- NOTE | ~2023-05-15 | XR_ITS ---
EXAMINATION: XR HAND, RIGHT CLINICAL INFORMATION: Fracture of unspecified phalanx of unspecified finger. COMPARISON: Fluoroscopy image of 04/16/2023. Right hand of 04/14/2023. TECHNIQUE: PA, lateral, and oblique views of the right hand. FINDINGS: Redemonstration of comminuted fracture at the base of the middle phalanx of the fifth digit with intra-articular extension, transfixed by a K wire. Hardware appears intact. Diffuse soft tissue swelling at the digit. Alignment is similar. Fracture lines are still visible, but less distinct suggesting some bony bridging. XR/XR hand RT min 3V IMPRESSION: Redemonstration of comminuted fracture at the base of the middle phalanx of the fifth digit with intra-articular extension, transfixed by a K wire. Hardware appears intact. Alignment is similar. Fracture lines are still visible, but less distinct suggesting some bony bridging.
== END 2023-05-15 09:14 | disposition home or self-care (01) ==
LOC: HO.HOSX 09:13
PROVIDERS: Visit Provider Orthopaedic Surgery
DX: S62.606D Fracture of unspecified phalanx of right little finger, subsequent encounter for fracture with routine healing (principal)
CPT/HCPCS: 73130

== ENCOUNTER 2023-05-15 10:46 | Outpatient (AMB) | payer OTHER, SELFPAY ==
--- NOTE | 2023-05-15 10:50 | MHC.OFFVIS ---
Intake Intake Visit Reasons: PO-Rt SF ORIF vc CRPP 04/16/23 NE-w/xray Intake Note: Sabino is a 58 year old right hand dominant male who presents today for a post op appointment s/p right SF ORIF vc CRPP 04/16/23 NE. Patient reports that he is doing well, with no pain. He has numnbess of the small finger. At this time he has no concerns Allergies No Known Allergies [No Known Allergies*] Allergy (Verified 05/15/23 10:53) HPI PO-Rt SF ORIF vc CRPP 04/16/23 NE-w/xray HPI Details Sabino is a 58 year old man who presents S/P right small finger CRPP, DOS: 04/16/23. His initial ORIF was done 04/09/23, and his K-wire was removed accidentally at his first post-op appointment on 04/14/23. At his last appointment he was fitted for an ulnar gutter cast. He says he is doing well in regards to pain. He reports having some mild numbness in his finger. 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 Review of Systems Const All systems reviewed & are unremarkable except as noted in HPI and below Physical Exam Const General: no acute distress, alert and awake Orientation/consciousness: patient oriented x3 HEENT Head: Yes normocephalic and Yes atraumatic Eyes EOM: EOMs intact bilaterally Resp Effort & Inspection: normal respiratory effort and able to speak in complete sentences Cardio Jugular venous distension: no JVD Skin General skin exam: turgor normal Rashes: no rashes Neuro General: patient oriented x3 Extrem Other: pin site c/d/i decreased sensation about radial and ulnar aspect of distal phalanx Psych Appearance: grossly normal Affect: normal affect Attitude: cooperative Assessment & Plan Assessment & Plan (1) Fracture of phalanx of right hand, closed: Code(s): S62.609A - Fracture of unspecified phalanx of unspecified finger, initial encounter for closed fracture Plan: OT David taped for now Gentle ROM f/u 4 weeks Plan Prepared for Jitendra Mckeon MD by Mert Bravo, medical imaging specialist, on 05/15/23 at 10:53 AM, EST. Orders: Orders OT Evaluation and Treatment Today S62.609A - Fracture of unspecified phalanx of unspecified finger, initial encounter for closed fracture XR hand RT min 3V Today S62.609A - Fracture of unspecified phalanx of unspecified finger, initial encounter for closed fracture Coding Level of Care Code Global (94040) Diagnoses Fracture of phalanx of right hand, closed S62.609A
== END 2023-05-15 11:13 | disposition home or self-care (01) ==
PROVIDERS: PCP Family Medicine; Visit Provider Orthopaedic Surgery
DX: S62.609A Fracture of unspecified phalanx of unspecified finger, initial encounter for closed fracture (principal)
CPT/HCPCS: 99024

== ENCOUNTER 2023-06-12 08:51 | Outpatient (REF) | payer OTHER, SELFPAY | END 2023-06-12 08:52 | disposition home or self-care (01) | LOC: HO.HOSX 08:51 | PROVIDERS: Visit Provider Orthopaedic Surgery | DX: Z13.89 Encounter for screening for other disorder (principal) ==

== ENCOUNTER 2023-07-14 08:30 | Outpatient (RCR) | payer OTHER, SELFPAY ==
--- NOTE | 2023-05-26 15:22 | MHC.OT.EP ---
[address] [phone] Occupational Therapy Plan of Care Patient Name: Sabino Jaramillo Date of Evaluation: 05/26/23 Diagnosis: FRACTURE OF SMALL RIGHT FINGER Pain Location: PAINFREE AT REST SHOOTING PAIN IN SMALL FINGER 4-5/10 Pain Score: 0-5/10 Pain Scale Used: Numeric (0 - 10) Aggravating Factors: UNEXPECTED BUMPING OF R HAND Alleviating Factors: NOT USING PAIN MEDICATION OR ICE/HEAT RECENTLY, ROGE TAPE AT WORK Assessment: MR JARAMILLO IS 5.5 WEEKS S/P FRACTURE OF BASE OF MIDDLE PHALANX OF RIGHT SMALL FINGER. HE UNDERWENT CRPP ON 04/16/[address] BAL. HE REPORTS GRADUAL RETURN OF SENSATION IN HIS SMALL FINGER, AND IMPROVEMENTS IN AROM. HE P/W EDEMA, ROM AND STRENGTH LIMITATIONS. A 25% LIMITATION IS REPORTED PER THE QUICK DASH ASSESSMENT. HE HAS DIFFICULTIES WITH COMPLETING CERTAIN GYM WORKOUTS, OPENING TIGHT JARS AND MAKING A FULL FIST. ONGOING SKILLED OT IS WARRANTED TO ADDRESS THE AREAS MENTIONED BELOW. Frequency and Duration: The patient will be seen 2X/WEEK FOR 6 WEEKS Short Term Goals: IND HEP IND EDEMA MANAGEMENT IND USE OF HEAT/COLD MODALITIES IMPROVE PIPj FLEX OF R SF TO 40 DEGREES Senior Insight Manager Goals: ACHIEVE TIP TO DPC OF R SF WITHIN 0.5 CM R GROSS GRASP > 60 POUNDS REPORT MOSTLY PAINFREE WITH LIGHT IADLs IND SELF TAPING STRATEGIES Treatment Plan: Therapeutic Exercise Therapeutic Activity Home Exercise Program Splinting Neuro Re-ed Patient Education Desensitization/Sensory Re-ed Edema Control ADL Training Ultrasound NMES Iontophoresis Paraffin Fluidotherapy MHP Cold Packs Joint Mobilization Soft Tissue Mobilization Kinesiotaping Other (see comments) Electronically Signed By: STEWART GONZALEZ OTR/L Please Sign and return to therapist. Thank you once again for your referral.
--- NOTE | 2023-07-16 09:40 | MHC.OT.DC ---
[address] [phone] F: [phone] Occupational Therapy Discharge Note Patient Name: Sabino Salinas Provider: Jitendra Mckeon Diagnosis: FRACTURE OF SMALL RIGHT FINGER Date of Surgery: 04/16/23 Date of Evaluation: 05/26/23 Date of Discharge: 07/16/23 Treatments to Date: 10 Cancellations to Date: 0 No Shows to Date: 0 Discharge Status: Improved Function Independent with HEP Discharge Summary: Sabino is now 12 weeks post-op right small finger CRPP. He has continued to progress w/ digit range and overall functional use of finger with right hand. Range is limited by about 1 cm tip-palm, but he had good strength (105lb gross grasp) and good use of finger for fine motor tasks and object manipulation. He has no pain with daily activities or stretching and will continue home program with use of static progressive flexion splint for continued passive range. Therapy goals met and I anticipate he will continue to obtain range over time w/ participation in home program. Electronically Signed By: RICHMOND Glass/Shola CHT Reviewed/agree with student documentation: N/A Therapist: Please Sign and return to therapist, thank you for your referral.
== END 2023-07-16 09:41 | disposition home or self-care (01) ==
LOC: HO.OT 08:30
PROVIDERS: PCP Family Medicine; Visit Provider Orthopaedic Surgery
DX: S62.606D Fracture of unspecified phalanx of right little finger, subsequent encounter for fracture with routine healing (principal)
CPT/HCPCS: 97110; 97140; 97166

== ENCOUNTER 2023-09-11 08:01 | Outpatient (REF) | payer OTHER, SELFPAY | END 2023-09-11 08:02 | disposition home or self-care (01) | LOC: HO.HOSX 08:01 | PROVIDERS: Visit Provider Orthopaedic Surgery | DX: Z13.89 Encounter for screening for other disorder (principal) ==

== ENCOUNTER 2023-09-25 14:42 | Outpatient (AMB) | payer OTHER, SELFPAY ==
--- NOTE | 2023-09-25 15:11 | MHC.OFFVIS ---
Intake Visit Reasons: OV-Rt SF ORIF vc CRPP 04/16/23 NE-w/xray Intake Note: Sabino is a 58 year old right hand dominant male who presents today for a follow up s/p right SF ORIF vc CRPP 04/16/23 NE. In apr he was instructed to rosalind tape and work on gentle ROM, he reports that he went to about 9 sessions which went well but he is still unable to make a full fist. Allergies No Known Allergies [No Known Allergies*] Allergy (Verified 09/25/23 15:12) HPI HPI OV-Rt SF ORIF vc CRPP 04/16/23 NE-w/xray: Details: 5 1/2 mo s/p R sf CRPP. He is doing well with some stiffness. No pain PFSH Medical History Pancreatitis Diverticulitis Hx of dislocation of shoulder Surgical History History of arthroplasty of right shoulder Social History Household Members: Significant Other Housing: Apartment Do you presently have visiting nurse or other home services: No Patient Tobacco Use Status: Never used Tobacco Substance Use Type: Marijuana service: No Current occupational status: employed Current occupation: ambidextrous/ environmental services Physical Exam Extrem Other: 5-20 deg motion left sf PIP. Intact alignment Skin healthy Results Reviewed Results Reviewed: I personally reviewed relevant radiographs. Healed SF PIP with loss of articular anatomy but well aligned. 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 Discussed options should he have worsening symptoms but, at this time, no intervention warranted. 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
== END 2023-09-25 15:30 | disposition home or self-care (01) ==
PROVIDERS: PCP Family Medicine; Visit Provider Orthopaedic Surgery
DX: M15.2 Bouchard's nodes (with arthropathy) (principal)
CPT/HCPCS: 99213

== ENCOUNTER 2023-09-25 14:42 | Outpatient (REF) | payer OTHER, SELFPAY ==
--- NOTE | ~2023-09-25 | XR_ITS ---
EXAMINATION: XR HAND, RIGHT CLINICAL INFORMATION: Fracture of unspecified fillings of unspecified digit. COMPARISON: 05/15/2023, 04/16/2023, 04/14/2023. TECHNIQUE: PA, lateral, and oblique views of the right hand. FINDINGS: Redemonstration of a comminuted fracture at the base of middle phalanx of the fifth digit with intra-articular extension. K wire has been removed. There are vertical lucencies in the fifth digit PIP periarticular area, possibly related to demineralization and/or incomplete healing. Tiny calcific/ossific fragment adjacent to the fifth digit PIP joint with surrounding soft tissue swelling. Tiny ill-defined density overlying the distal tuft of the fifth digit may represent postsurgical change/foreign body and correlation with clinical and surgical history recommended. XR/XR hand RT min 3V IMPRESSION: Comminuted intra-articular fracture at the base of the fifth digit middle phalanx with periarticular destructive changes and linear lucencies possibly related to demineralization and/or incomplete healing/trauma.
== END 2023-09-25 14:43 | disposition home or self-care (01) ==
LOC: HO.HOSX 14:42
PROVIDERS: PCP Family Medicine; Visit Provider Orthopaedic Surgery
DX: M15.2 Bouchard's nodes (with arthropathy) (principal); S62.626D Displaced fracture of middle phalanx of right little finger, subsequent encounter for fracture with routine healing
CPT/HCPCS: 73130